=== PATIENT | male | born 2005 | race Caucasian/White ===

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

== ENCOUNTER 2025-05-15 17:44 | Emergency (ER) | payer OTHER ==
[2025-05-15] MEDS: LIDOCAINE 4% PATCH TOPICAL ONE (20:03)
[2025-05-15] MEDS: ORPHENADRINE 30 MG/ML 2 ML VIAL IM STA (20:04)
[2025-05-15] MEDS: KETOROLAC 15 MG/ML 1 ML VIAL IM STA (20:04)
[2025-05-15] MEDS: DEXAMETHASONE SOD PHOSPHATE 10 MG/ML 1 ML VIAL IM STA (20:05)
--- NOTE | 2025-05-15 20:12 | XR ---
EXAMINATION TYPE: XR lumbar spine 2 or 3V DATE OF EXAM: 05/15/2025 8:00 PM COMPARISON: None. CLINICAL INDICATION: Male, 19 years old with history of injury; PHH, pain TECHNIQUE: XR lumbar spine 2 or 3V - Frontal, lateral and coned in L5-S1 lateral views of the spine. FINDINGS: No evidence of any acute osseous pathology. No evidence of loss of vertebral body height i s seen. There is normal alignment of the lumbar vertebral bodies. No significant degeneration changes throughout the spine. IMPRESSION: No acute fracture or traumatic subluxation. [facility], , 05/15/2025 8:10 PM
--- NOTE | 2025-05-15 20:14 | ED ---
Back Pain HPI - General Chief Complaint: Back Pain/Injury Stated Complaint: back pain Source: patient Limitations: no limitations - History of Present Illness Initial Comments: 19-year-old male presenting with chief complaint of lower back pain. Pain started on Thursday. He was playing softball and running when he hit his back on a 4 x 4 piece of wood. He did have a large amount of swelling to his lower back which seems to have improved since then. However he reports that his pain is still quite persistent and he had a difficult time working today. No loss of bowel or bladder control or saddle paresthesia. No radiation of pain down the legs. No fever or chills. No nausea or vomiting. No abdominal pain. - Related Data Home Medications Medication Instructions Recorded Confirmed Meclizine [Antivert] 25 mg PO TID PRN 05/05/22 05/05/22 Previous Rx's Medication Instructions Recorded Omeprazole [PriLOSEC] 20 mg PO DAILY #30 cap 05/05/22 Ondansetron [Zofran ODT] 4 mg PO Q8HR #20 tab 05/05/22 Cyclobenzaprine [Flexeril] 10 mg PO TID PRN #15 tab 05/15/25 Allergies Allergy/AdvReac Type Severity Reaction Status Date / Time No Known Allergies Allergy Verified 05/15/25 18:05 Review of Systems ROS Statement: Those systems with pertinent positive or pertinent negative responses have been documented in the HPI. ROS Other: All systems not noted in ROS Statement are negative. Past Medical History Additional Past Medical History / Comment(s): vertigo History of Any Multi-Drug Resistant Organisms: None Reported Past Surgical History: No Surgical Hx Reported Past Psychological History: No Psychological Hx Reported Smoking Status: Never smoker Past Alcohol Use History: Occasional Past Drug Use History: None Reported General Exam Limitations: no limitations General appearance: alert, in no apparent distress Head exam: Present: atraumatic, normocephalic, normal inspection Eye exam: Present: normal appearance, EOMI Neck exam: Present: normal inspection. Absent: meningismus Respiratory exam: Absent: respiratory distress Cardiovascular Exam: Present: regular rate Back exam: Present: normal inspection, tenderness Neurological exam: Present: alert, oriented X3 Psychiatric exam: Present: normal affect, normal mood Skin exam: Present: warm, dry, normal color Course Vital Signs 05/15/25 05/15/25 18:02 21:25 Temperature 98.0 F 98.1 F Pulse Rate 69 53 L Respiratory 17 16 Rate Blood Pressure 151/79 121/75 O2 Sat by Pulse 97 99 Oximetry Medical Decision Making - Medical Decision Making Was pt. sent in by a medical professional or institution (, [facility], HEALTH SYSTEMS ANALYST, urgent care, hospital, or snf...) When possible be specific @ -No Did you speak to anyone other than the patient for history (EMS, parent, family, police, friend...)? What history was obtained from this source @ -No Did you review nursing and triage notes (agree or disagree)? Why? @ -I reviewed and agree with nursing and triage notes Were old charts reviewed (outside hosp., previous admission, EMS record, old EKG, old radiological studies, urgent care reports/EKG's, snf records)? Report findings @ -No old charts were reviewed Differential Diagnosis (chest pain, altered mental status, abdominal pain women, abdominal pain men, vaginal bleeding, weakness, fever, dyspnea, syncope, headache, dizziness, GI bleed, back pain, seizure, CVA, palpatations, mental health, musculoskeletal)? @ - MDM Differential Back Pain: Strain, zoster, cauda equina syndrome, epidural abscess, vertebral osteomyelitis, discitis, fracture, subluxation, disc herniation, DJD, spinal stenosis, dissection, AAA, pancreatitis, peptic ulcer disease, pyelonephritis, kidney stone… this is not meant to be an all-inclusive list. EKG interpreted by me (3pts min.). @ -As above X-rays interpreted by me (1pt min.). @ -X-ray negative for acute fracture or traumatic subluxation CT interpreted by me (1pt min.). @ -None done U/S interpreted by me (1pt. min.). @ -None done What testing was considered but not performed or refused? (CT, X-rays, U/S, labs)? Why? @ -None What meds were considered but not given or refused? Why? @ -None Did you discuss the management of the patient with other professionals (professionals i.e. [facility]en, HEALTH SYSTEMS ANALYST, lab, RT, psych nurse, social sciences chair, agriculture teacher, teacher, chief customer officer, rn case mgr)? Give summary @ -No Was smoking cessation discussed for >3mins.? @ -No Was critical care preformed (if so, how long)? @ -No Were there social determinants of health that impacted care today? How? (Homelessness, low income, unemployed, alcoholism, drug addiction, transportation, low edu. Level, literacy, decrease access to med. care, intermediate, rehab)? @ -No Was there de-escalation of care discussed even if they declined (Discuss DNR or withdrawal of care, Hospice)? DNR status @ -No What co-morbidities impacted this encounter? (DM, HTN, Smoking, COPD, CAD, Cancer, CVA, ARF, Chemo, Hep., AIDS, mental health diagnosis, sleep apnea, morbid obesity)? @ -None Was patient admitted / discharged? Hospital course, mention meds given and route, prescriptions, significant lab abnormalities, going to OR and other pertinent info. @ -19-year-old male presented with chief complaint of lower back pain after an injury on Thursday. No red flag symptoms. History and physical examination are conducted. X-ray negative for acute fracture or traumatic subluxation. Patient reports significant improvement after pain medication. He would like to be discharged home. Provided with muscle relaxers for home. Follow-up with PCP. Report back to ER with any new or worsening symptoms. Discussed return parameters and answered all questions. Patient conveyed verbal understanding and agreed to the plan. I discussed this case in detail with my attending Dr. Benavidez Undiagnosed new problem with uncertain prognosis? @ -No Drug Therapy requiring intensive monitoring for toxicity (Heparin, Nitro, Insulin, Cardizem)? @ -No Were any procedures done? @ -No Diagnosis/symptom? @ -Strain of lumbar region Acute, or Chronic, or Acute on Chronic? @ -Acute Uncomplicated (without systemic symptoms) or Complicated (systemic symptoms)? @ -Uncomplicated Side effects of treatment? @ -No Exacerbation, Progression, or Severe Exacerbation? @ -No Poses a threat to life or bodily function? How? (Chest pain, [place], [place], pneumonia, PE, COPD, DKA, ARF, appy, cholecystitis, CVA, Diverticulitis, Homicidal, Suicidal, threat to staff... and all critical care pts) @ -Unlikely Disposition Clinical Impression: Strain of lumbar region Disposition: HOME SELF-CARE Condition: Good Instructions (If sedation given, give patient instructions): Acute Low Back Pain (ED) Additional Instructions: Follow-up with PCP. Report back to ER with any new or worsening symptoms. Take Motrin and Tylenol as needed for pain control. Do not take cyclobenzaprine before driving or operating heavy machinery as it may cause drowsiness Prescriptions: Cyclobenzaprine [Flexeril] 10 mg PO TID PRN #15 tab PRN Reason: Spasms Is patient prescribed a controlled substance at d/c from ED?: No Referrals: None,Stated [Primary Care Provider] - 1-2 days Magen Posey DO [Doctor of Osteopathic Medicine] - 1-2 days Time of Disposition: 21:21
[2025-05-15 21:39] VITALS: BP 121/75; PULSE 53; RESP 16; TEMP 98.1
== END 2025-05-15 21:25 | disposition home or self-care (01) ==
LOC: EC 17:44
DX: S39.012A Strain of muscle, fascia and tendon of lower back, initial encounter (principal); W22.8XXA Striking against or struck by other objects, initial encounter; Y93.64 Activity, baseball
CPT/HCPCS: 72100; 99283; 96372 ×3; J1100; J2360; J1885